=== PATIENT | male | born 1940 | race Caucasian/White ===

== ENCOUNTER 2017-05-12 08:33 | Inpatient (IN) ==
[2017-05-12] MEDS ORDERED: ALBUTEROL 2.5 MG/3 ML NEB RESP TX STA (08:58)
[2017-05-12] MEDS ORDERED: FUROSEMIDE 40 MG/4 ML VIAL IV STA (09:05)
[2017-05-12 09:16] LABS: Basophils % 0.2 % (0.0-0.8); Eosinophils % 0.3 % (0.00-10.9); Hematocrit 30.7 VOL% (42.0-52.0); Hemoglobin 10.3 GM/DL (14.0-18.0); Immature Granulocytes % 0.4 %; Immature Granulocytes Absolute 0.05 #; Lymphocytes # 0.8 10*3/uL (1.4-4.0); Lymphocytes % 6.1 % (21.2-54.2); Mean Corpuscular HGB Conc 33.6 GM/DL (32-36); Mean Corpuscular Hemoglobin 30 PG (27-34); Mean Corpuscular Volume 89.8 FL (87-102); Mean Platelet Volume 14.1 FL (9.6-12.0); Monocytes # 1.1 10*3/uL (0.11-0.8); Monocytes % 8.7 % (1.7-12.7); Neutrophils # 10.4 10*3/uL (1.4-7.4); Neutrophils % 84.3 % (38.7-73.9); Platelet Count 134 T/CUMM (130-400); Red Blood Count 3.42 MC/CUMM (3.8-5.5); Red Cell Distribution Width 13.5 % (9.3-17.3); White Blood Count 12.4 T/CUMM (4-12)
[2017-05-12] MEDS ORDERED: FUROSEMIDE 40 MG/4 ML VIAL ONE (09:18)
[2017-05-12 09:23] LABS: PT Patient Result 10.1 SECS; Partial Thromboplastin Time 25.5 SECS (0-40)
[2017-05-12 09:38] LABS: Albumin 3.7 G/DL (3.4-5.0); Bilirubin,Total 0.4 MG/DL (0.2-1.0); Calcium 8.9 MG/DL (8.5-10.1); Osmolality,Calculated 259.4 MOS/KG (273-304); Total Protein 6.9 G/DL (6.4-8.3); Troponin I Only 0.026 NG/ML (0.00-0.045)
[2017-05-12] MEDS ORDERED: ACETAMINOPHEN 325 MG TABLET PO PRN (11:58)
[2017-05-12] MEDS ORDERED: NITROGLYCERIN SL 0.4 MG TABLET SL PRN (12:42)
[2017-05-12] MEDS ORDERED: LEVALBUTEROL 0.31 MG/3 ML NEB RESP TX PRN (15:02)
[2017-05-12] MEDS: ASPIRIN EC 81 MG TABLET PO SCH (15:19)
[2017-05-12] MEDS: CARVEDILOL 6.25 MG TABLET PO SCH ×2 (15:19→20:26)
[2017-05-12] MEDS: ISOSORBIDE MONONITRATE 30 MG TABLET PO SCH (15:19)
[2017-05-12] MEDS ORDERED: ENOXAPARIN 30 MG/0.3 ML SYRINGE SUBCUT SCH (15:30)
[2017-05-12 15:58] LABS: Troponin I Only 0.047 NG/ML (0.00-0.045)
[2017-05-12] MEDS ORDERED: FUROSEMIDE 40 MG/4 ML VIAL IV SCH (16:00)
[2017-05-12] MEDS ORDERED: POTASSIUM CHLORIDE RIDER 10 MEQ in PREMIX 1 EACH IV PRN (16:06)
[2017-05-12] MEDS ORDERED: MAGNESIUM SULF RIDER 2 GM in PREMIX 1 EACH IV PRN (16:06)
[2017-05-12] MEDS ORDERED: DIAZEPAM 5 MG TABLET PO ONE (16:06)
[2017-05-12] MEDS ORDERED: diphenhydrAMINE CAP 25 MG CAPSULE PO ONE (16:06)
[2017-05-12 16:38] LABS: Apearance,Urine CLEAR (Clear); Bilirubin,Urine Negative (Negative); Blood, Urine Negative (Negative); Glucose,Urine (UA) Negative (Negative); Ketones,Urine Negative (Negative); Mucus,Urine Occasional /LPF (Occasional); Nitrite,Urine Negative (Negative); Protein,Urine Negative; Urine Color Straw (Yellow); Urine Specific Gravity 1.004 (1.001-1.035); Urine Urobilinogen < 2.0 EU/DL (0.2-1.0); WBC,Urine <1 /HPF (0-6)
[2017-05-12] MEDS ORDERED: ENOXAPARIN 80 MG/0.8 ML SYRINGE SUBCUT ONE (16:58)
[2017-05-12] MEDS ORDERED: ENOXAPARIN 80 MG/0.8 ML SYRINGE SUBCUT SCH (17:00)
[2017-05-12] MEDS ORDERED: FUROSEMIDE 40 MG/4 ML VIAL IV ONE (18:39)
[2017-05-12] MEDS: ALBUTEROL 1.25 MG/3 ML NEB RESP TX PRN ×2 (18:49→22:50)
[2017-05-12] MEDS: ROSUVASTATIN 20 MG TABLET PO SCH (20:27)
[2017-05-12 20:31] LABS: PT Patient Result 10.2 SECS
[2017-05-12 21:09] LABS: Apearance,Urine CLEAR (Clear); Bilirubin,Urine Negative (Negative); Blood, Urine Negative (Negative); Glucose,Urine (UA) Negative (Negative); Ketones,Urine Negative (Negative); Mucus,Urine Occasional /LPF (Occasional); Nitrite,Urine Negative (Negative); Protein,Urine Negative; Squamous Epithelial Cell,Urine Occasional /HPF (0-10); Urine Color Colorless (Yellow); Urine Specific Gravity 1.004 (1.001-1.035); Urine Urobilinogen < 2.0 EU/DL (0.2-1.0)
[2017-05-13 04:44] LABS: Basophils % 0.2 % (0.0-0.8); Eosinophils # 0.1 10*3/uL (0.0-0.87); Eosinophils % 1.2 % (0.00-10.9); Hematocrit 29.1 VOL% (42.0-52.0); Hemoglobin 10.3 GM/DL (14.0-18.0); Immature Granulocytes % 0.2 %; Immature Granulocytes Absolute 0.02 #; Lymphocytes # 0.9 10*3/uL (1.4-4.0); Lymphocytes % 10.5 % (21.2-54.2); Mean Corpuscular HGB Conc 35.4 GM/DL (32-36); Mean Corpuscular Hemoglobin 30 PG (27-34); Mean Corpuscular Volume 85.8 FL (87-102); Mean Platelet Volume 14.4 FL (9.6-12.0); Monocytes # 0.9 10*3/uL (0.11-0.8); Monocytes % 10.5 % (1.7-12.7); NRBC # 0.02 10*3/uL; Neutrophils # 6.7 10*3/uL (1.4-7.4); Neutrophils % 77.4 % (38.7-73.9); Platelet Count 135 T/CUMM (130-400); Red Blood Count 3.39 MC/CUMM (3.8-5.5); Red Cell Distribution Width 13.5 % (9.3-17.3); White Blood Count 8.7 T/CUMM (4-12)
[2017-05-13 05:30] LABS: Troponin I Only 0.039 NG/ML (0.00-0.045)
[2017-05-13 05:36] LABS: Calcium 8.7 MG/DL (8.5-10.1); Osmolality,Calculated 261.9 MOS/KG (273-304); Risk Ratio 2.29; VLDL CHOLESTEROL 14.6 MG/DL
[2017-05-13] MEDS ORDERED: diphenhydrAMINE CAP 25 MG CAPSULE PO ONE (09:00)
[2017-05-13] MEDS ORDERED: FUROSEMIDE 100 MG/10 ML VIAL IV SCH (09:00)
[2017-05-13] MEDS ORDERED: DIAZEPAM 5 MG TABLET PO ONE (09:00)
[2017-05-13] MEDS ORDERED: amLODIPine 10 MG TABLET PO SCH (09:00)
[2017-05-13] MEDS: CARVEDILOL 6.25 MG TABLET PO SCH ×2 (11:28→20:27)
[2017-05-13] MEDS: LOSARTAN 50 MG TABLET PO SCH (11:28)
[2017-05-13] MEDS: PANTOPRAZOLE 40 MG TABLET PO SCH (11:29)
[2017-05-13] MEDS: ASPIRIN EC 81 MG TABLET PO SCH (11:30)
[2017-05-13] MEDS: ISOSORBIDE MONONITRATE 30 MG TABLET PO SCH (11:30)
[2017-05-13] MEDS: CLOPIDOGREL 75 MG TABLET PO SCH (11:31)
[2017-05-13] MEDS: amLODIPine 5 MG TABLET PO SCH (11:31)
[2017-05-13] MEDS ORDERED: HEPARIN/NACL 0.9% 2 UNITS/ML 2,000 ML IV ONE (12:17)
[2017-05-13] MEDS: CETIRIZINE 10 MG TABLET PO SCH (12:19)
[2017-05-13] MEDS: TAMSULOSIN 0.4 MG CAPSULE PO SCH (12:19)
[2017-05-13] MEDS ORDERED: POTASSIUM CHLORIDE RIDER 10 MEQ in PREMIX 1 EACH IV PRN (12:46)
[2017-05-13] MEDS ORDERED: MAGNESIUM SULF RIDER 2 GM in PREMIX 1 EACH IV PRN (12:46)
[2017-05-13] MEDS ORDERED: LIDOCAINE 1% 20 ML VIAL ONE (13:12)
[2017-05-13] MEDS ORDERED: HYDROmorphone 2 MG/1 ML VIAL ONE (13:13)
[2017-05-13] MEDS ORDERED: MIDAZOLAM 2 MG/2 ML VIAL ONE (13:14)
[2017-05-13] MEDS ORDERED: BIVALIRUDIN 250 MG VIAL IV ONE (14:25)
[2017-05-13] MEDS ORDERED: ATROPINE 1 MG/10 ML SYRINGE ONE (14:50)
[2017-05-13] MEDS ORDERED: DOPamine 800 MG/250 ML PREMIX IV ONE (14:50)
[2017-05-13] MEDS ORDERED: CLOPIDOGREL 300 MG TABLET ONE (15:17)
[2017-05-13] MEDS: ROSUVASTATIN 20 MG TABLET PO SCH (20:29)
[2017-05-14] MEDS: ONDANSETRON 4 MG/2 ML VIAL IV PRN (00:29)
[2017-05-14 05:35] LABS: Basophils % 0.2 % (0.0-0.8); Eosinophils % 0.4 % (0.00-10.9); Hematocrit 27.1 VOL% (42.0-52.0); Hemoglobin 8.8 GM/DL (14.0-18.0); Immature Granulocytes % 0.4 %; Immature Granulocytes Absolute 0.04 #; Lymphocytes # 0.8 10*3/uL (1.4-4.0); Lymphocytes % 7.9 % (21.2-54.2); Mean Corpuscular HGB Conc 32.5 GM/DL (32-36); Mean Corpuscular Hemoglobin 30 PG (27-34); Mean Corpuscular Volume 92.2 FL (87-102); Mean Platelet Volume 14.8 FL (9.6-12.0); Monocytes # 1.5 10*3/uL (0.11-0.8); Monocytes % 14.1 % (1.7-12.7); Neutrophils # 8.1 10*3/uL (1.4-7.4); Platelet Count 115 T/CUMM (130-400); Red Blood Count 2.94 MC/CUMM (3.8-5.5); Red Cell Distribution Width 13.7 % (9.3-17.3); White Blood Count 10.4 T/CUMM (4-12)
[2017-05-14 06:03] LABS: Calcium 8.2 MG/DL (8.5-10.1); Osmolality,Calculated 267.8 MOS/KG (273-304); Osmolality,Calculated 271.5 MOS/KG (273-304); Potassium 4.6 MMOL/L (3.5-5.1)
[2017-05-14 06:09] LABS: Troponin I Only 0.076 NG/ML (0.00-0.045)
[2017-05-14] MEDS ORDERED: FUROSEMIDE 40 MG/4 ML VIAL ONE (06:58)
[2017-05-14] MEDS ORDERED: FUROSEMIDE 40 MG/4 ML VIAL IV ONE (07:00)
[2017-05-14] MEDS: CETIRIZINE 10 MG TABLET PO SCH (08:41)
[2017-05-14] MEDS: amLODIPine 5 MG TABLET PO SCH (08:41)
[2017-05-14] MEDS: PANTOPRAZOLE 40 MG TABLET PO SCH (08:41)
[2017-05-14] MEDS: CLOPIDOGREL 75 MG TABLET PO SCH (08:41)
[2017-05-14] MEDS: LOSARTAN 50 MG TABLET PO SCH (08:41)
[2017-05-14] MEDS: ASPIRIN EC 81 MG TABLET PO SCH (08:41)
[2017-05-14] MEDS: ISOSORBIDE MONONITRATE 30 MG TABLET PO SCH (08:42)
[2017-05-14] MEDS: TAMSULOSIN 0.4 MG CAPSULE PO SCH (08:42)
[2017-05-14] MEDS: CARVEDILOL 6.25 MG TABLET PO SCH ×2 (08:42→21:02)
[2017-05-14 15:04] LABS: Apearance,Urine CLEAR (Clear); Bacteria,Urine Occasional /HPF (Few); Bilirubin,Urine Negative (Negative); Blood, Urine Negative (Negative); Glucose,Urine (UA) Negative (Negative); Hyaline Casts,Urine 3 /LPF (0-3); Ketones,Urine Negative (Negative); Mucus,Urine Occasional /LPF (Occasional); Nitrite,Urine Negative (Negative); Protein,Urine Negative; RBC,Urine 1 /HPF (0-4); Urine Color Yellow (Yellow); Urine Specific Gravity 1.036 (1.001-1.035); Urine Urobilinogen < 2.0 EU/DL (0.2-1.0); WBC,Urine 1 /HPF (0-6)
[2017-05-14] MEDS ORDERED: FUROSEMIDE 40 MG/4 ML VIAL IV SCH (16:00)
[2017-05-14] MEDS: ROSUVASTATIN 20 MG TABLET PO SCH (21:03)
[2017-05-14] MEDS: TEMAZEPAM 7.5 MG CAPSULE PO PRN (22:03)
[2017-05-15 02:48] LABS: Basophils % 0.3 % (0.0-0.8); Eosinophils # 0.1 10*3/uL (0.0-0.87); Eosinophils % 1.9 % (0.00-10.9); Hematocrit 26.1 VOL% (42.0-52.0); Hemoglobin 8.9 GM/DL (14.0-18.0); Immature Granulocytes % 0.4 %; Immature Granulocytes Absolute 0.03 #; Lymphocytes # 0.9 10*3/uL (1.4-4.0); Lymphocytes % 12.6 % (21.2-54.2); Mean Corpuscular HGB Conc 34.1 GM/DL (32-36); Mean Corpuscular Hemoglobin 30 PG (27-34); Mean Corpuscular Volume 87.9 FL (87-102); Mean Platelet Volume 14.1 FL (9.6-12.0); Monocytes % 13.3 % (1.7-12.7); Neutrophils # 5.3 10*3/uL (1.4-7.4); Neutrophils % 71.5 % (38.7-73.9); Platelet Count 110 T/CUMM (130-400); Red Blood Count 2.97 MC/CUMM (3.8-5.5); Red Cell Distribution Width 13.4 % (9.3-17.3); White Blood Count 7.4 T/CUMM (4-12)
[2017-05-15 03:05] LABS: Calcium 8.2 MG/DL (8.5-10.1); Osmolality,Calculated 268.9 MOS/KG (273-304)
[2017-05-15 03:18] LABS: Osmolality,Calculated 271.7 MOS/KG (273-304)
[2017-05-15] MEDS ORDERED: FUROSEMIDE 40 MG/4 ML VIAL IV ONE (07:12)
[2017-05-15] MEDS: ALBUTEROL 1.25 MG/3 ML NEB RESP TX PRN (07:17)
[2017-05-15] MEDS: amLODIPine 10 MG TABLET PO SCH (08:32)
[2017-05-15] MEDS: CETIRIZINE 10 MG TABLET PO SCH (08:32)
[2017-05-15] MEDS: ISOSORBIDE MONONITRATE 30 MG TABLET PO SCH (08:32)
[2017-05-15] MEDS: ASPIRIN EC 81 MG TABLET PO SCH (08:33)
[2017-05-15] MEDS: CLOPIDOGREL 75 MG TABLET PO SCH (08:33)
[2017-05-15] MEDS: CARVEDILOL 6.25 MG TABLET PO SCH (08:33)
[2017-05-15] MEDS: TAMSULOSIN 0.4 MG CAPSULE PO SCH (08:33)
[2017-05-15] MEDS: PANTOPRAZOLE 40 MG TABLET PO SCH (08:33)
[2017-05-15] MEDS: CARVEDILOL 12.5 MG TABLET PO SCH ×2 (09:08→16:39)
[2017-05-15] MEDS ORDERED: ALBUTEROL 1.25 MG/3 ML NEB RESP TX PRN (11:00)
[2017-05-15] MEDS: ALBUTEROL 1.25 MG/3 ML NEB RESP TX SCH ×2 (15:03→21:38)
[2017-05-15] MEDS: ONDANSETRON 4 MG/2 ML VIAL IV PRN (17:26)
[2017-05-15] MEDS: ROSUVASTATIN 20 MG TABLET PO SCH (22:07)
[2017-05-16] MEDS: ALBUTEROL 1.25 MG/3 ML NEB RESP TX SCH ×6 (01:33→19:59)
[2017-05-16 04:40] LABS: Basophils % 0.3 % (0.0-0.8); Eosinophils # 0.1 10*3/uL (0.0-0.87); Eosinophils % 1.7 % (0.00-10.9); Hematocrit 26.8 VOL% (42.0-52.0); Immature Granulocytes % 0.4 %; Immature Granulocytes Absolute 0.03 #; Lymphocytes # 0.9 10*3/uL (1.4-4.0); Mean Corpuscular HGB Conc 33.6 GM/DL (32-36); Mean Corpuscular Hemoglobin 30 PG (27-34); Mean Corpuscular Volume 89.6 FL (87-102); Mean Platelet Volume 14.5 FL (9.6-12.0); Monocytes # 0.8 10*3/uL (0.11-0.8); Monocytes % 11.8 % (1.7-12.7); Neutrophils % 72.8 % (38.7-73.9); Platelet Count 105 T/CUMM (130-400); Red Blood Count 2.99 MC/CUMM (3.8-5.5); Red Cell Distribution Width 13.2 % (9.3-17.3); White Blood Count 6.9 T/CUMM (4-12)
[2017-05-16 05:07] LABS: Calcium 8.3 MG/DL (8.5-10.1); Osmolality,Calculated 270.7 MOS/KG (273-304); Potassium 4.2 MMOL/L (3.5-5.1)
[2017-05-16 05:08] LABS: Calcium 8.1 MG/DL (8.5-10.1); Osmolality,Calculated 271.7 MOS/KG (273-304); Potassium 4.2 MMOL/L (3.5-5.1)
[2017-05-16] MEDS: TAMSULOSIN 0.4 MG CAPSULE PO SCH (08:14)
[2017-05-16] MEDS: ISOSORBIDE MONONITRATE 30 MG TABLET PO SCH (08:14)
[2017-05-16] MEDS: PANTOPRAZOLE 40 MG TABLET PO SCH (08:14)
[2017-05-16] MEDS: ASPIRIN EC 81 MG TABLET PO SCH (08:14)
[2017-05-16] MEDS: CARVEDILOL 12.5 MG TABLET PO SCH (08:14)
[2017-05-16] MEDS: CLOPIDOGREL 75 MG TABLET PO SCH (08:14)
[2017-05-16] MEDS: amLODIPine 10 MG TABLET PO SCH (08:15)
[2017-05-16] MEDS: CETIRIZINE 10 MG TABLET PO SCH (08:15)
[2017-05-16] MEDS ORDERED: methylPREDNISolone SOD SUC 40 MG/1 ML VIAL IV ONE (10:39)
[2017-05-16] MEDS: CARVEDILOL 25 MG TABLET PO SCH ×2 (10:46→21:30)
[2017-05-16] MEDS: APIXABAN 2.5 MG TABLET PO SCH ×2 (10:51→21:30)
[2017-05-16] MEDS ORDERED: FUROSEMIDE 40 MG/4 ML VIAL IV ONE (12:50)
[2017-05-16] MEDS: ROSUVASTATIN 20 MG TABLET PO SCH (21:30)
[2017-05-16] MEDS: TEMAZEPAM 7.5 MG CAPSULE PO PRN (21:32)
[2017-05-17] MEDS: ALBUTEROL 1.25 MG/3 ML NEB RESP TX SCH ×7 (00:10→23:43)
[2017-05-17 04:47] LABS: Hematocrit 26.4 VOL% (42.0-52.0); Hemoglobin 9.3 GM/DL (14.0-18.0); Immature Granulocytes % 0.8 %; Immature Granulocytes Absolute 0.06 #; Lymphocytes # 0.6 10*3/uL (1.4-4.0); Lymphocytes % 8.1 % (21.2-54.2); Mean Corpuscular HGB Conc 35.2 GM/DL (32-36); Mean Corpuscular Hemoglobin 30 PG (27-34); Mean Platelet Volume 14.7 FL (9.6-12.0); Monocytes # 0.5 10*3/uL (0.11-0.8); Monocytes % 6.1 % (1.7-12.7); Neutrophils # 6.7 10*3/uL (1.4-7.4); Platelet Count 114 T/CUMM (130-400); Red Blood Count 3.07 MC/CUMM (3.8-5.5); Red Cell Distribution Width 13.1 % (9.3-17.3); White Blood Count 7.8 T/CUMM (4-12)
[2017-05-17 05:10] LABS: Calcium 8.4 MG/DL (8.5-10.1); Osmolality,Calculated 269.8 MOS/KG (273-304); Potassium 4.9 MMOL/L (3.5-5.1)
[2017-05-17 05:14] LABS: Calcium 8.6 MG/DL (8.5-10.1); Osmolality,Calculated 267.9 MOS/KG (273-304); Potassium 4.8 MMOL/L (3.5-5.1)
[2017-05-17] MEDS ORDERED: FUROSEMIDE 40 MG/4 ML VIAL IV ONE (09:48)
[2017-05-17] MEDS ORDERED: MORPHINE 2 MG/1 ML SYRINGE IV ONE (09:50)
[2017-05-17] MEDS ORDERED: methylPREDNISolone SOD SUC 40 MG/1 ML VIAL IV ONE (09:51)
[2017-05-17] MEDS: TAMSULOSIN 0.4 MG CAPSULE PO SCH (10:05)
[2017-05-17] MEDS: CETIRIZINE 10 MG TABLET PO SCH (10:05)
[2017-05-17] MEDS: CARVEDILOL 25 MG TABLET PO SCH ×2 (10:06→22:02)
[2017-05-17] MEDS: ASPIRIN EC 81 MG TABLET PO SCH (10:06)
[2017-05-17] MEDS: APIXABAN 2.5 MG TABLET PO SCH ×2 (10:06→22:02)
[2017-05-17] MEDS: ISOSORBIDE MONONITRATE 30 MG TABLET PO SCH (10:06)
[2017-05-17] MEDS: CLOPIDOGREL 75 MG TABLET PO SCH (10:06)
[2017-05-17] MEDS: amLODIPine 10 MG TABLET PO SCH (10:06)
[2017-05-17] MEDS: FUROSEMIDE 40 MG/4 ML VIAL IV SCH ×3 (10:22→22:01)
[2017-05-17 11:38] LABS: ABG Base Excess 1.8 MMOL/L (-2.5-2.5); ABG Oxygen Saturation 91.2 % (95-100); ABG PCO2 45.5 MM HG (35-48); ABG PH 7.384 (7.35-7.45); ABG PO2 61.9 MM HG (80-95); ABG TCO2 25.2 MMOL/L (23-27)
[2017-05-17] MEDS ORDERED: DEXTROSE 50% 25 GM/50 ML VIAL IV PRN (12:05)
[2017-05-17] MEDS: methylPREDNISolone SOD SUC 40 MG/1 ML VIAL IV SCH (22:01)
[2017-05-17] MEDS: ROSUVASTATIN 20 MG TABLET PO SCH (22:02)
[2017-05-17] MEDS: TEMAZEPAM 7.5 MG CAPSULE PO PRN (22:02)
[2017-05-18] MEDS: ALBUTEROL 1.25 MG/3 ML NEB RESP TX SCH ×5 (03:27→19:11)
[2017-05-18 06:56] LABS: Calcium 8.9 MG/DL (8.5-10.1); Osmolality,Calculated 273.8 MOS/KG (273-304); Potassium 4.4 MMOL/L (3.5-5.1)
[2017-05-18] MEDS: ISOSORBIDE MONONITRATE 30 MG TABLET PO SCH (08:36)
[2017-05-18] MEDS: ASPIRIN EC 81 MG TABLET PO SCH (08:36)
[2017-05-18] MEDS: amLODIPine 10 MG TABLET PO SCH (08:36)
[2017-05-18] MEDS: CLOPIDOGREL 75 MG TABLET PO SCH (08:37)
[2017-05-18] MEDS: methylPREDNISolone SOD SUC 40 MG/1 ML VIAL IV SCH ×2 (08:37→22:09)
[2017-05-18] MEDS: APIXABAN 2.5 MG TABLET PO SCH ×2 (08:37→22:09)
[2017-05-18] MEDS: CARVEDILOL 25 MG TABLET PO SCH ×2 (08:37→22:09)
[2017-05-18] MEDS: TAMSULOSIN 0.4 MG CAPSULE PO SCH (08:37)
[2017-05-18] MEDS: CETIRIZINE 10 MG TABLET PO SCH (08:37)
[2017-05-18] MEDS: FUROSEMIDE 40 MG/4 ML VIAL IV SCH ×2 (08:41→15:28)
[2017-05-18] MEDS: TEMAZEPAM 7.5 MG CAPSULE PO PRN (22:09)
[2017-05-18] MEDS: ROSUVASTATIN 20 MG TABLET PO SCH (22:09)
[2017-05-19] MEDS: ALBUTEROL 1.25 MG/3 ML NEB RESP TX SCH ×7 (00:20→23:46)
[2017-05-19 05:08] LABS: Hematocrit 26.5 VOL% (42.0-52.0); Hemoglobin 9.3 GM/DL (14.0-18.0); Immature Granulocytes % 0.5 %; Immature Granulocytes Absolute 0.05 #; Lymphocytes # 0.4 10*3/uL (1.4-4.0); Lymphocytes % 4.4 % (21.2-54.2); Mean Corpuscular HGB Conc 35.1 GM/DL (32-36); Mean Corpuscular Hemoglobin 30 PG (27-34); Mean Corpuscular Volume 84.9 FL (87-102); Mean Platelet Volume 14.5 FL (9.6-12.0); Monocytes # 0.4 10*3/uL (0.11-0.8); Monocytes % 3.7 % (1.7-12.7); Neutrophils # 9.2 10*3/uL (1.4-7.4); Neutrophils % 91.4 % (38.7-73.9); Platelet Count 119 T/CUMM (130-400); Red Blood Count 3.12 MC/CUMM (3.8-5.5); Red Cell Distribution Width 13.2 % (9.3-17.3); White Blood Count 10.1 T/CUMM (4-12)
[2017-05-19 05:23] LABS: Calcium 8.2 MG/DL (8.5-10.1); Osmolality,Calculated 271.9 MOS/KG (273-304); Potassium 4.2 MMOL/L (3.5-5.1)
[2017-05-19 05:36] LABS: Giant Platelets Few; Hypochromasia 1+; Lymphocytes 3 % (20-55); Platelet Estimate Decreased; Segmented Neutrophils 96 % (50-85); Total Cells Counted 100
[2017-05-19] MEDS: ASPIRIN EC 81 MG TABLET PO SCH (08:31)
[2017-05-19] MEDS: TAMSULOSIN 0.4 MG CAPSULE PO SCH (08:31)
[2017-05-19] MEDS: amLODIPine 10 MG TABLET PO SCH (08:31)
[2017-05-19] MEDS: CARVEDILOL 25 MG TABLET PO SCH ×2 (08:31→21:45)
[2017-05-19] MEDS: CETIRIZINE 10 MG TABLET PO SCH (08:31)
[2017-05-19] MEDS: CLOPIDOGREL 75 MG TABLET PO SCH (08:31)
[2017-05-19] MEDS: APIXABAN 2.5 MG TABLET PO SCH ×2 (08:31→21:45)
[2017-05-19] MEDS: methylPREDNISolone SOD SUC 40 MG/1 ML VIAL IV SCH ×2 (08:32→21:46)
[2017-05-19] MEDS: ISOSORBIDE MONONITRATE 30 MG TABLET PO SCH (08:32)
[2017-05-19] MEDS: FUROSEMIDE 40 MG/4 ML VIAL IV SCH ×2 (08:33→15:30)
[2017-05-19] MEDS: PANTOPRAZOLE 40 MG TABLET PO SCH (21:45)
[2017-05-19] MEDS: ROSUVASTATIN 20 MG TABLET PO SCH (21:46)
[2017-05-19] MEDS: TEMAZEPAM 7.5 MG CAPSULE PO PRN (22:39)
[2017-05-20] MEDS: ALBUTEROL 1.25 MG/3 ML NEB RESP TX SCH ×5 (03:10→19:32)
[2017-05-20 05:36] LABS: Basophils % 0.1 % (0.0-0.8); Hematocrit 27.2 VOL% (42.0-52.0); Hemoglobin 9.3 GM/DL (14.0-18.0); Immature Granulocytes Absolute 0.11 #; Lymphocytes # 0.4 10*3/uL (1.4-4.0); Lymphocytes % 3.8 % (21.2-54.2); Mean Corpuscular HGB Conc 34.2 GM/DL (32-36); Mean Corpuscular Hemoglobin 30 PG (27-34); Mean Corpuscular Volume 87.7 FL (87-102); Mean Platelet Volume 15.1 FL (9.6-12.0); Monocytes # 0.2 10*3/uL (0.11-0.8); Neutrophils # 10.3 10*3/uL (1.4-7.4); Neutrophils % 93.1 % (38.7-73.9); Platelet Count 121 T/CUMM (130-400); Red Cell Distribution Width 13.1 % (9.3-17.3); White Blood Count 11.1 T/CUMM (4-12)
[2017-05-20 06:10] LABS: Hypochromasia 1+; Lymphocytes 3 % (20-55); Ovalocytes Slight; Platelet Estimate Normal; Segmented Neutrophils 96 % (50-85); Total Cells Counted 100
[2017-05-20 06:29] LABS: Calcium 8.3 MG/DL (8.5-10.1); Osmolality,Calculated 288.2 MOS/KG (273-304); Potassium 3.9 MMOL/L (3.5-5.1)
[2017-05-20] MEDS: APIXABAN 2.5 MG TABLET PO SCH ×2 (08:28→21:28)
[2017-05-20] MEDS: PANTOPRAZOLE 40 MG TABLET PO SCH (08:29)
[2017-05-20] MEDS: ASPIRIN EC 81 MG TABLET PO SCH (08:30)
[2017-05-20] MEDS: CARVEDILOL 25 MG TABLET PO SCH ×2 (08:30→21:28)
[2017-05-20] MEDS: CETIRIZINE 10 MG TABLET PO SCH (08:30)
[2017-05-20] MEDS: CLOPIDOGREL 75 MG TABLET PO SCH (08:30)
[2017-05-20] MEDS: TAMSULOSIN 0.4 MG CAPSULE PO SCH (08:30)
[2017-05-20] MEDS: amLODIPine 10 MG TABLET PO SCH (08:30)
[2017-05-20] MEDS: ISOSORBIDE MONONITRATE 30 MG TABLET PO SCH (08:30)
[2017-05-20] MEDS: FUROSEMIDE 40 MG/4 ML VIAL IV SCH ×2 (08:31→15:43)
[2017-05-20] MEDS: methylPREDNISolone SOD SUC 40 MG/1 ML VIAL IV SCH ×2 (08:31→21:29)
[2017-05-20] MEDS: TEMAZEPAM 7.5 MG CAPSULE PO PRN (21:28)
[2017-05-21] MEDS: ALBUTEROL 1.25 MG/3 ML NEB RESP TX SCH ×7 (01:32→23:14)
[2017-05-21 06:47] LABS: Calcium 8.1 MG/DL (8.5-10.1); Osmolality,Calculated 290.1 MOS/KG (273-304); Potassium 3.4 MMOL/L (3.5-5.1)
[2017-05-21] MEDS: TAMSULOSIN 0.4 MG CAPSULE PO SCH (10:44)
[2017-05-21] MEDS: amLODIPine 10 MG TABLET PO SCH (10:44)
[2017-05-21] MEDS: PANTOPRAZOLE 40 MG TABLET PO SCH (10:45)
[2017-05-21] MEDS: ISOSORBIDE MONONITRATE 30 MG TABLET PO SCH (10:45)
[2017-05-21] MEDS: CLOPIDOGREL 75 MG TABLET PO SCH (10:45)
[2017-05-21] MEDS: APIXABAN 2.5 MG TABLET PO SCH ×2 (10:45→21:19)
[2017-05-21] MEDS: CETIRIZINE 10 MG TABLET PO SCH (10:45)
[2017-05-21] MEDS: FUROSEMIDE 40 MG/4 ML VIAL IV SCH ×3 (10:45→16:06)
[2017-05-21] MEDS: ASPIRIN EC 81 MG TABLET PO SCH (10:45)
[2017-05-21] MEDS: CARVEDILOL 25 MG TABLET PO SCH ×2 (10:45→21:19)
[2017-05-21] MEDS: methylPREDNISolone SOD SUC 40 MG/1 ML VIAL IV SCH ×2 (10:53→21:20)
[2017-05-21] MEDS ORDERED: FUROSEMIDE 100 MG/10 ML VIAL ONE (16:25)
[2017-05-21] MEDS: TEMAZEPAM 7.5 MG CAPSULE PO PRN (21:19)
[2017-05-22] MEDS: FUROSEMIDE 40 MG/4 ML VIAL IV SCH ×3 (00:37→16:20)
[2017-05-22] MEDS: ALBUTEROL 1.25 MG/3 ML NEB RESP TX SCH ×6 (03:30→23:07)
[2017-05-22 05:43] LABS: Calcium 8.2 MG/DL (8.5-10.1); Osmolality,Calculated 290.1 MOS/KG (273-304); Potassium 3.2 MMOL/L (3.5-5.1)
[2017-05-22] MEDS: ASPIRIN EC 81 MG TABLET PO SCH (09:40)
[2017-05-22] MEDS: APIXABAN 2.5 MG TABLET PO SCH ×2 (09:40→21:39)
[2017-05-22] MEDS: PANTOPRAZOLE 40 MG TABLET PO SCH (09:40)
[2017-05-22] MEDS: amLODIPine 10 MG TABLET PO SCH (09:40)
[2017-05-22] MEDS: CARVEDILOL 25 MG TABLET PO SCH ×2 (09:40→21:39)
[2017-05-22] MEDS: CETIRIZINE 10 MG TABLET PO SCH (09:40)
[2017-05-22] MEDS: ISOSORBIDE MONONITRATE 30 MG TABLET PO SCH (09:40)
[2017-05-22] MEDS: CLOPIDOGREL 75 MG TABLET PO SCH (09:40)
[2017-05-22] MEDS: TAMSULOSIN 0.4 MG CAPSULE PO SCH (09:40)
[2017-05-22] MEDS: POTASSIUM CHLORIDE 20 MEQ TABLET PO SCH (09:41)
[2017-05-22] MEDS: methylPREDNISolone SOD SUC 40 MG/1 ML VIAL IV SCH ×2 (09:41→21:41)
[2017-05-22] MEDS ORDERED: POTASSIUM CHLORIDE 20 MEQ TABLET PO PRN (12:23)
[2017-05-23] MEDS: FUROSEMIDE 40 MG/4 ML VIAL IV SCH ×2 (00:29→10:07)
[2017-05-23] MEDS: ALBUTEROL 1.25 MG/3 ML NEB RESP TX SCH ×6 (02:50→23:50)
[2017-05-23 05:17] LABS: Hematocrit 29.4 VOL% (42.0-52.0); Immature Granulocytes % 1.8 %; Immature Granulocytes Absolute 0.17 #; Lymphocytes # 0.5 10*3/uL (1.4-4.0); Lymphocytes % 5.4 % (21.2-54.2); Mean Corpuscular Hemoglobin 29 PG (27-34); Mean Corpuscular Volume 85.7 FL (87-102); Mean Platelet Volume 14.8 FL (9.6-12.0); Monocytes # 0.5 10*3/uL (0.11-0.8); Monocytes % 5.4 % (1.7-12.7); Neutrophils # 8.4 10*3/uL (1.4-7.4); Neutrophils % 87.4 % (38.7-73.9); Platelet Count 144 T/CUMM (130-400); Red Blood Count 3.43 MC/CUMM (3.8-5.5); Red Cell Distribution Width 13.2 % (9.3-17.3); White Blood Count 9.6 T/CUMM (4-12)
[2017-05-23 05:57] LABS: Calcium 8.2 MG/DL (8.5-10.1); Osmolality,Calculated 287.2 MOS/KG (273-304); Potassium 3.5 MMOL/L (3.5-5.1)
[2017-05-23] MEDS: TAMSULOSIN 0.4 MG CAPSULE PO SCH (10:05)
[2017-05-23] MEDS: PANTOPRAZOLE 40 MG TABLET PO SCH (10:06)
[2017-05-23] MEDS: APIXABAN 2.5 MG TABLET PO SCH ×2 (10:06→21:08)
[2017-05-23] MEDS: ISOSORBIDE MONONITRATE 30 MG TABLET PO SCH (10:06)
[2017-05-23] MEDS: amLODIPine 10 MG TABLET PO SCH (10:06)
[2017-05-23] MEDS: ASPIRIN EC 81 MG TABLET PO SCH (10:06)
[2017-05-23] MEDS: CETIRIZINE 10 MG TABLET PO SCH (10:06)
[2017-05-23] MEDS: CLOPIDOGREL 75 MG TABLET PO SCH (10:06)
[2017-05-23] MEDS: CARVEDILOL 25 MG TABLET PO SCH ×2 (10:07→21:08)
[2017-05-23] MEDS: POTASSIUM CHLORIDE 20 MEQ TABLET PO SCH (10:07)
[2017-05-23] MEDS: methylPREDNISolone SOD SUC 40 MG/1 ML VIAL IV SCH (10:10)
[2017-05-23] MEDS: TEMAZEPAM 7.5 MG CAPSULE PO SCH (21:08)
[2017-05-24] MEDS: ALBUTEROL 1.25 MG/3 ML NEB RESP TX SCH ×6 (03:25→23:20)
[2017-05-24 05:38] LABS: Calcium 8.2 MG/DL (8.5-10.1); Osmolality,Calculated 284.4 MOS/KG (273-304); Potassium 3.6 MMOL/L (3.5-5.1)
[2017-05-24] MEDS ORDERED: FUROSEMIDE 40 MG/4 ML VIAL IV SCH (09:00)
[2017-05-24] MEDS: methylPREDNISolone SOD SUC 40 MG/1 ML VIAL IV SCH (09:12)
[2017-05-24] MEDS: APIXABAN 2.5 MG TABLET PO SCH ×2 (09:13→21:41)
[2017-05-24] MEDS: PANTOPRAZOLE 40 MG TABLET PO SCH (09:13)
[2017-05-24] MEDS: CETIRIZINE 10 MG TABLET PO SCH (09:13)
[2017-05-24] MEDS: TAMSULOSIN 0.4 MG CAPSULE PO SCH (09:14)
[2017-05-24] MEDS: amLODIPine 10 MG TABLET PO SCH (09:14)
[2017-05-24] MEDS: ISOSORBIDE MONONITRATE 30 MG TABLET PO SCH (09:14)
[2017-05-24] MEDS: CARVEDILOL 25 MG TABLET PO SCH ×2 (09:14→21:41)
[2017-05-24] MEDS: ASPIRIN EC 81 MG TABLET PO SCH (09:14)
[2017-05-24] MEDS: CLOPIDOGREL 75 MG TABLET PO SCH (09:14)
[2017-05-24] MEDS: POTASSIUM CHLORIDE 20 MEQ TABLET PO SCH (09:14)
[2017-05-24] MEDS: TEMAZEPAM 7.5 MG CAPSULE PO SCH (21:41)
[2017-05-25] MEDS: ALBUTEROL 1.25 MG/3 ML NEB RESP TX SCH ×4 (03:20→13:59)
[2017-05-25] MEDS: amLODIPine 10 MG TABLET PO SCH (08:40)
[2017-05-25] MEDS: POTASSIUM CHLORIDE 20 MEQ TABLET PO SCH (08:41)
[2017-05-25] MEDS: CLOPIDOGREL 75 MG TABLET PO SCH (08:41)
[2017-05-25] MEDS: APIXABAN 2.5 MG TABLET PO SCH (08:41)
[2017-05-25] MEDS: TAMSULOSIN 0.4 MG CAPSULE PO SCH (08:41)
[2017-05-25] MEDS: PANTOPRAZOLE 40 MG TABLET PO SCH (08:41)
[2017-05-25] MEDS: CETIRIZINE 10 MG TABLET PO SCH (08:41)
[2017-05-25] MEDS: ASPIRIN EC 81 MG TABLET PO SCH (08:42)
[2017-05-25] MEDS: ISOSORBIDE MONONITRATE 30 MG TABLET PO SCH (08:42)
[2017-05-25] MEDS: CARVEDILOL 25 MG TABLET PO SCH (08:42)
[2017-05-25] MEDS: methylPREDNISolone SOD SUC 40 MG/1 ML VIAL IV SCH (08:43)
[2017-05-25] MEDS ORDERED: FUROSEMIDE 80 MG TABLET PO SCH ×2 (09:00→16:00)
[2017-05-25] MEDS ORDERED: EZETIMIBE 10 MG TABLET PO SCH (09:00)
[2017-05-25 16:46] VITALS: BP 132/60
== END 2017-05-25 17:50 | disposition swing bed (61) | DRG 246 ==
LOC: N.ED 08:33 → N.EDINP 10:43 → SUATTDRO 10:43 → N.4E 12:09 → N.TELES 16:20
PROVIDERS: ADMIT Internal Medicine; ATTEND Internal Medicine